=== PATIENT | male | born 1965 | race Caucasian/White ===

== ENCOUNTER 2020-05-28 12:30 | Observation (INO) | payer BC ==
[2020-05-28] MEDS ORDERED: Sodium Chloride 0.9% 10 ML Syringe FLUSH PRN ×2 (12:41→13:23)
--- NOTE | 2020-05-28 12:53 | EDM.PDOC ---
ED HPI GENERAL MEDICAL PROBLEM - General Chief Complaint: Cardiovascular Problem Stated Complaint: CHEST PAIN Time Seen by Provider: 05/28/20 12:30 Source of Information: Reports: Patient History Limitations: Reports: No Limitations - History of Present Illness INITIAL COMMENTS - FREE TEXT/NARRATIVE: 54 YO WM PRESENTS TO ER BY EMS WITH EPISODE OF CHEST PAIN WHICH BEGAN JUST PRIOR TO ARRIVAL. PT REPORTS PAIN WAS LEFT SIDED BURNING SENSATION WITH ASSOCIATED DIZZINESS AND MILD DIAPHORESIS. PT REPORTS CHEST PAIN WAS AT WORST A 2/10 AND AFTER NITRO 0.4 X 1 PT REPORTS NO CHEST DISCOMFORT AT ALL. PT REPORTS HE WOKE UP THIS AM AND FELT LIKE HIS BLOOD PRESSURE WAS ELEVATED. UPON CHECKING, IT WAS 180S/90S. CURRENT BP 132/80 AND CHEST PAIN FREE. PT TOOK HIS HOME BP MEDICATION AT THAT TIME. PT WITH HISTORY OF PVD AND HAS A STENT IN LEFT ILIAC. PT DENIES PREVIOUS EPISODES OF CHEST PAIN OR CARDIOLOGY EVALUATIONS. PT + TOBACCO- 1.5 PPD. PMH OF HYPERTENSION, HYPERCHOLESTEROLEMIA AND FAMILY HISTORY OF VASCULAR DISEASE DAD HAS HAD MULTIPLE CVA PRIOR TO HIS DEMISE. PT DENIES FEVER/CHILLS, NO NAUSEA/VOMITING, NO COUGH/CONGESTION AND NO KNOWN SICK CONTACTS OR COVID EXPOSURES. Onset: Today Location: Reports: Chest Quality: Reports: Ache Severity: Mild Improves with: Reports: None Worsens with: Reports: None Associated Symptoms: Reports: Chest Pain, Diaphoresis. 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 Social & Family History - Living Situation & Occupation Occupation: Employed ED ROS GENERAL - Review of Systems Review Of Systems: See Below Constitutional: Reports: No Symptoms HEENT: Reports: No Symptoms Respiratory: Reports: No Symptoms Cardiovascular: Reports: Chest Pain, Blood Pressure Problem, Lightheadedness Endocrine: Reports: No Symptoms GI/Abdominal: Reports: No Symptoms : Reports: No Symptoms Musculoskeletal: Reports: No Symptoms Skin: Reports: No Symptoms Neurological: Reports: No Symptoms Psychiatric: Reports: No Symptoms Hematologic/Lymphatic: Reports: No Symptoms Immunologic: Reports: No Symptoms ED EXAM, GENERAL - Physical Exam Exam: See Below Exam Limited By: No Limitations General Appearance: Alert, WD/WN, No Apparent Distress Head: Atraumatic, Normocephalic Neck: Normal Inspection, Supple, Non-Tender, Full Range of Motion Respiratory/Chest: No Respiratory Distress, Lungs Clear, Normal Breath Sounds, No Accessory Muscle Use, Chest Non-Tender Cardiovascular: Normal Peripheral Pulses, Regular Rate, Rhythm, No Edema, No Gallop, No JVD, No Murmur, No Rub GI/Abdominal: Normal Bowel Sounds, Soft, Non-Tender, No Organomegaly, No Distention, No Abnormal Bruit, No Mass Back Exam: Normal Inspection, Full Range of Motion, NT Extremities: Normal Inspection, Normal Range of Motion, Non-Tender, Normal Capillary Refill, No Pedal Edema Neurological: Alert, Oriented, CN II-XII Intact, Normal Cognition, Normal Gait, No Motor/Sensory Deficits Psychiatric: Normal Affect, Normal Mood Skin Exam: Warm, Dry, Intact, Normal Color, No Rash Lymphatic: No Adenopathy #1 Interpretation EKG Date: 05/28/20 Time: 12:42 Rhythm: NSR Rate (Beats/Min): 73 [place]: Normal P-Wave: Present QRS: Normal ST-T: Normal QT: Normal Course - Vital Signs Last Recorded V/S: Last Vital Signs Temp 97.7 F 05/28/20 12:45 Pulse 66 05/28/20 13:06 Resp 18 05/28/20 13:06 BP 123/68 05/28/20 13:06 Pulse Ox 96 05/28/20 12:45 - Orders/Labs/Meds Orders: Active Orders 24 hr Category Date Time Status EKG Documentation Completion [RC] ASDIRECTED Care 05/28/20 12:41 Ordered Peripheral IV Care [RC] . DIRECTED Care 05/28/20 12:41 Ordered INR,PT,PROTHROMBIN TIME [COAG] Stat Lab 05/28/20 12:41 Ordered PTT,PARTIAL THROMBOPLSTIN TIME [COAG] Stat Lab 05/28/20 12:41 Ordered Sodium Chloride 0.9% [Saline Flush] Med 05/28/20 12:41 Ordered 10 ml FLUSH Q8HR PRN Peripheral IV Insertion Adult [OM.PC] Routine Oth 05/28/20 12:41 Ordered EKG 12 Lead [EK] Stat Ther 05/28/20 12:41 Ordered Medication Orders Sodium Chloride (Saline Flush) 10 ml FLUSH Q8HR PRN PRN Reason: keep vein open Labs: Laboratory Tests 05/28/20 05/28/20 Range/Units 12:15 12:15 WBC 8.69 (5.00-10.00) 10^3/uL RBC 5.22 (4.50-6.00) 10^6/uL Hgb 15.8 (13.0-17.0) g/dL Hct 46.1 (40.0-52.0) % MCV 88.3 (82.0-92.0) fL MCH 30.3 (27.0-31.0) pg MCHC 34.3 (32.0-36.0) g/dL RDW 12.9 (11.5-14.5) % Plt Count 287 (150-400) 10^3/uL MPV 9.9 (7.4-10.4) fL Immature Gran % (Auto) 0.1 (0.0-5.0) % Neut % (Auto) 76.2 H (50.0-70.0) % Lymph % (Auto) 17.8 L (20.0-40.0) % [place] % (Auto) 4.7 (2.0-8.0) % Eos % (Auto) 1.0 (1.0-3.0) % Baso % (Auto) 0.2 (0.0-1.0) % Neut # (Auto) 6.61 (2.50-7.00) 10^3/uL Lymph # (Auto) 1.55 (1.00-4.00) 10^3/uL [place] # (Auto) 0.41 (0.10-0.80) 10^3/uL Eos # (Auto) 0.09 L (0.10-0.30) 10^3/uL Baso # (Auto) 0.02 (0.00-0.10) 10^3/uL Immature Gran # (Auto) 0.01 (0.00-0.50) 10^3/uL Sodium 139 (136-145) mmol/L Potassium 3.6 (3.5-5.1) mmol/L Chloride 103 (98-107) mmol/L Carbon Dioxide 23.7 (21.0-32.0) mmol/L Anion Gap 15.9 H (5-15) mmol/L BUN 12 (7-18) mg/dL Creatinine 0.75 (0.51-1.17) mg/dL Est Cr Clr Drug Dosing 118.53 mL/min Estimated GFR (MDRD) > 60 mL/min Glucose 169 H (70-140) mg/dL Calcium 9.4 (8.7-10.3) mg/dL Total Bilirubin 0.4 (0.2-1.0) mg/dL AST 27 (15-37) U/L ALT 59 (14-63) U/L Alkaline Phosphatase 117 H (46-116) U/L Creatine Kinase 63 (26-276) U/L CK-MB (CK-2) < 0.50 (0.00-3.60) ng/mL Troponin I < 0.017 (0.000-0.056) ng/mL Total Protein 7.4 (6.4-8.2) g/dL Albumin 3.75 (3.40-5.00) g/dL Meds: Medications Generic Name Dose Route Start Last Admin Trade Name Freq PRN Reason Stop Dose Admin Sodium Chloride 10 ml 05/28/20 12:41 Saline Flush FLUSH Q8HR PRN keep vein open - Radiology Interpretation Free Text/Narrative:: CXR-NAD Departure - Departure Time of Disposition: 13:22 Disposition: Refer to Observation Condition: Good Clinical Impression: Chest pain Qualifiers: Chest pain type: unspecified Qualified Code(s): R07.9 - Chest pain, unspecified Referrals: Esperanza Bliss MACHINE SHORTHAND REPORTER [Primary Care Provider] - Forms: ED Department Discharge Sepsis Event Note (ED) - Focused Exam Vital Signs: Vital Signs Temp Pulse Resp BP Pulse Ox 05/28/20 13:06 66 18 123/68 05/28/20 12:45 97.7 F 79 18 118/83 96 - My Orders Last 24 Hours: My Active Orders 05/28/20 12:41 EKG Documentation Completion [RC] ASDIRECTED Peripheral IV Care [RC] . DIRECTED INR,PT,PROTHROMBIN TIME [COAG] Stat PTT,PARTIAL THROMBOPLSTIN TIME [COAG] Stat Sodium Chloride 0.9% [Saline Flush] 10 ml FLUSH Q8HR PRN Peripheral IV Insertion Adult [OM.PC] Routine EKG 12 Lead [EK] Stat - Assessment/Plan Last 24 Hours: My Active Orders 05/28/20 12:41 EKG Documentation Completion [RC] ASDIRECTED Peripheral IV Care [RC] . DIRECTED INR,PT,PROTHROMBIN TIME [COAG] Stat PTT,PARTIAL THROMBOPLSTIN TIME [COAG] Stat Sodium Chloride 0.9% [Saline Flush] 10 ml FLUSH Q8HR PRN Peripheral IV Insertion Adult [OM.PC] Routine EKG 12 Lead [EK] Stat Assessment:: 1. CHEST PAIN 2. KNOWN PERIPHERAL VASCULAR DISEASE Plan: 1. ADMIT TO MEDICINE- [facility] ACCEPTING- OBSERVATION 2. ASA/NITRO 3. TROP I Q6 X 3 4. SUPPORTIVE CARE
--- NOTE | 2020-05-28 13:08 | CR ---
[id number] RAD/RAD Chest PA And Lateral EXAM: RAD Chest PA And Lateral CLINICAL DATA: CHEST PAIN COMPARISON: NO PREVIOUS SIMILAR EXAM IS AVAILABLE. FINDINGS: The lungs are clear. The cardiomediastinal contour is normal. The regional bones and soft tissues are unremarkable. IMPRESSION: NO ACUTE PROCESS. Rogers Martin MD 05/28/20 [id number] Thank you for allowing us to participate in the care of your patient.
[2020-05-28 13:14] LABS: ANION GAP 15.9 mmol/L (5-15); CHLORIDE,CL 103 mmol/L (98-107); SODIUM,NA 139 mmol/L (136-145)
[2020-05-28 13:19] LABS: PTT,PARTIAL THROMBOPLSTIN TIME 28.3 SEC (22.8-31.4)
--- NOTE | 2020-05-28 16:00 | PCM.HP.2 ---
H&P History of Present Illness - General Date of Service: 05/28/20 Admit Problem/Dx: Admission Diagnosis/Problem Admission Diagnosis/Problem Chest pain Source of Information: Patient, Old Records, Provider History Limitations: Reports: No Limitations 0 Pain Score (Numeric/FACES): 0 - Related Data Allergies/Adverse Reactions: Allergies Allergy/AdvReac Type Severity Reaction Status Date / Time No Known Drug Allergies Allergy Cannot Verified 05/28/20 12:52 Remember Home Medications: Home Meds Losartan Potassium [Cozaar] 100 mg PO DAILY 05/28/20 [History] atorvaSTATin [Lipitor] 40 mg PO BEDTIME 05/28/20 [History] Past Medical History HEENT History: Reports: Impaired Vision Cardiovascular History: Reports: Hypertension, PVD Musculoskeletal History: Reports: Fracture Other Musculoskeletal History: right Ankle reconstruction. Neurological History: Reports: Migraines - Infectious Disease History Infectious Disease History: Reports: Chicken Pox - Past Surgical History HEENT Surgical History: Reports: Oral Surgery Other Cardiovascular Surgeries/Procedures: stent in left upper leg due to excessive plaque Neurological Surgical History: Reports: None Social & Family History - Family History Cardiac: Reports: CAD, Hypertension Endocrine/Metabolic: Reports: Diabetes, type II Oncologic: Reports: Prostate - Tobacco Use Tobacco Use Status *Q: Current Every Day Tobacco User Years of Tobacco use: 20 Packs/Tins Daily: 1.5 - Caffeine Use Caffeine Use: Reports: Coffee, Soda Other Caffeine Use: 4 cups coffee every morning. 3-4 pops per week - Alcohol Use Days Per Week of Alcohol Use: 7 Number of Drinks Per Day: 3 Total Drinks Per Week: 21 - Recreational Drug Use Recreational Drug Use: No - Living Situation & Occupation Occupation: Employed H&P Review of Systems - Review of Systems: Review Of Systems: See Below General: Denies: Fever, Diaphoresis HEENT: Reports: Glasses. Denies: Ear Pain, Headaches, Post Nasal Drip, Sinus Congestion, Sore Throat, Vertigo Pulmonary: Denies: Shortness of Breath Cardiovascular: Reports: Palpitations (prior to arrival, none now). Denies: Chest Pain, Edema Gastrointestinal: Reports: Other (no reflux). Denies: Nausea Neurological: Denies: Dizziness, Headache Exam - Exam Exam: See Below - Vital Signs Vital Signs: Last Vital Signs Temp 97.7 F 05/28/20 12:45 Pulse 70 05/28/20 13:40 Resp 18 05/28/20 13:40 BP 119/77 05/28/20 13:40 Pulse Ox 97 05/28/20 15:30 Weight: 175 lb - Exam Quality Assessment: No: Supplemental Oxygen, DVT Prophylaxis General: Alert, Oriented, Cooperative, Other (No distress) HEENT: Conjunctiva Clear, EOMI (no nystagmus), Hearing Intact, Pupils Equal, Pupils Reactive, TMs Clear, Glasses, PERRLA Neck: Supple Lungs: Clear to Auscultation, Normal Respiratory Effort Cardiovascular: Regular Rate, Regular Rhythm, Normal S1, Normal S2 Extremities: No Pedal Edema Skin: Warm, Dry Neurological: Cranial Nerves Intact, Strength Equal Bilateral Neuro Extensive - Mental Status: Alert, Oriented x3, Normal Mood/Affect, Normal Cognition, Memory Intact Neuro Extensive - Motor, Sensory, Reflexes: CN II-XII Intact. No: Abnormal [place]berg Psychiatric: Alert, Normal Affect, Normal Mood - Patient Data Lab Results Last 24 hrs: Laboratory Results - last 24 hr 05/28/20 05/28/20 05/28/20 Range/Units 12:15 12:15 12:15 WBC 8.69 (5.00-10.00) 10^3/uL RBC 5.22 (4.50-6.00) 10^6/uL Hgb 15.8 (13.0-17.0) g/dL Hct 46.1 (40.0-52.0) % MCV 88.3 (82.0-92.0) fL MCH 30.3 (27.0-31.0) pg MCHC 34.3 (32.0-36.0) g/dL RDW 12.9 (11.5-14.5) % Plt Count 287 (150-400) 10^3/uL MPV 9.9 (7.4-10.4) fL Immature Gran % (Auto) 0.1 (0.0-5.0) % Neut % (Auto) 76.2 H (50.0-70.0) % Lymph % (Auto) 17.8 L (20.0-40.0) % [place] % (Auto) 4.7 (2.0-8.0) % Eos % (Auto) 1.0 (1.0-3.0) % Baso % (Auto) 0.2 (0.0-1.0) % Neut # (Auto) 6.61 (2.50-7.00) 10^3/uL Lymph # (Auto) 1.55 (1.00-4.00) 10^3/uL [place] # (Auto) 0.41 (0.10-0.80) 10^3/uL Eos # (Auto) 0.09 L (0.10-0.30) 10^3/uL Baso # (Auto) 0.02 (0.00-0.10) 10^3/uL Immature Gran # (Auto) 0.01 (0.00-0.50) 10^3/uL PT 10.0 (9.2-11.2) SEC INR 1.0 (0.9-1.1) APTT 28.3 (22.8-31.4) SEC Sodium 139 (136-145) mmol/L Potassium 3.6 (3.5-5.1) mmol/L Chloride 103 (98-107) mmol/L Carbon Dioxide 23.7 (21.0-32.0) mmol/L Anion Gap 15.9 H (5-15) mmol/L BUN 12 (7-18) mg/dL Creatinine 0.75 (0.51-1.17) mg/dL Est Cr Clr Drug Dosing 118.53 mL/min Estimated GFR (MDRD) > 60 mL/min Glucose 169 H (70-140) mg/dL Calcium 9.4 (8.7-10.3) mg/dL Total Bilirubin 0.4 (0.2-1.0) mg/dL AST 27 (15-37) U/L ALT 59 (14-63) U/L Alkaline Phosphatase 117 H (46-116) U/L Creatine Kinase 63 (26-276) U/L CK-MB (CK-2) < 0.50 (0.00-3.60) ng/mL Troponin I < 0.017 (0.000-0.056) ng/mL Total Protein 7.4 (6.4-8.2) g/dL Albumin 3.75 (3.40-5.00) g/dL SARS CoV-2 RNA Rapid WENDY (NEGATIVE) 05/28/20 Range/Units 13:25 WBC (5.00-10.00) 10^3/uL RBC (4.50-6.00) 10^6/uL Hgb (13.0-17.0) g/dL Hct (40.0-52.0) % MCV (82.0-92.0) fL MCH (27.0-31.0) pg MCHC (32.0-36.0) g/dL RDW (11.5-14.5) % Plt Count (150-400) 10^3/uL MPV (7.4-10.4) fL Immature Gran % (Auto) (0.0-5.0) % Neut % (Auto) (50.0-70.0) % Lymph % (Auto) (20.0-40.0) % [place] % (Auto) (2.0-8.0) % Eos % (Auto) (1.0-3.0) % Baso % (Auto) (0.0-1.0) % Neut # (Auto) (2.50-7.00) 10^3/uL Lymph # (Auto) (1.00-4.00) 10^3/uL [place] # (Auto) (0.10-0.80) 10^3/uL Eos # (Auto) (0.10-0.30) 10^3/uL Baso # (Auto) (0.00-0.10) 10^3/uL Immature Gran # (Auto) (0.00-0.50) 10^3/uL PT (9.2-11.2) SEC INR (0.9-1.1) APTT (22.8-31.4) SEC Sodium (136-145) mmol/L Potassium (3.5-5.1) mmol/L Chloride (98-107) mmol/L Carbon Dioxide (21.0-32.0) mmol/L Anion Gap (5-15) mmol/L BUN (7-18) mg/dL Creatinine (0.51-1.17) mg/dL Est Cr Clr Drug Dosing mL/min Estimated GFR (MDRD) mL/min Glucose (70-140) mg/dL Calcium (8.7-10.3) mg/dL Total Bilirubin (0.2-1.0) mg/dL AST (15-37) U/L ALT (14-63) U/L Alkaline Phosphatase (46-116) U/L Creatine Kinase (26-276) U/L CK-MB (CK-2) (0.00-3.60) ng/mL Troponin I (0.000-0.056) ng/mL Total Protein (6.4-8.2) g/dL Albumin (3.40-5.00) g/dL SARS CoV-2 RNA Rapid WENDY Negative (NEGATIVE) Result Diagrams: 05/28/20 12:15 05/28/20 12:15 #1 Interpretation EKG Date: 05/28/20 Time: 12:42 Rhythm: NSR Rate (Beats/Min): 73 [place]: Normal P-Wave: Present QRS: Normal ST-T: Normal QT: Normal Comparison: No Change (09/2018) Sepsis Event Note - Evaluation Sepsis Screening Result: No Definite Risk - Focused Exam Vital Signs: Vital Signs Temp Pulse Resp BP Pulse Ox Pulse Ox 05/28/20 15:30 97 05/28/20 13:40 70 18 119/77 96 05/28/20 13:20 68 18 117/73 96 05/28/20 13:06 66 18 123/68 05/28/20 12:45 97.7 F 79 18 118/83 96 Problem List Initiated/Reviewed/Updated: Yes Orders Last 24hrs: Active Orders 24 hr Category Date Time Status Patient Status [ADT] Routine ADT 05/28/20 13:23 Active Intake and Output [RC] QSHIFT Care 05/28/20 15:30 Active Oxygen Therapy [RC] PRN Care 05/28/20 15:30 Active Telemetry Monitoring [Cardiac Monitoring] [RC] . Care 05/28/20 15:30 Active DIRECTED Up ad [place] [RC] ASDIRECTED Care 05/28/20 15:30 Active VTE/DVT Education [RC] PER UNIT ROUTINE Care 05/28/20 15:30 Active Vital Signs [RC] Q4H Care 05/28/20 15:30 Active Heart Healthy Diet [DIET] Diet 05/28/20 Dinner Active BASIC METABOLIC PANEL,BMP [CHEM] AM Lab 05/29/20 05:11 Ordered CBC WITH AUTO DIFF [HEME] AM Lab 05/29/20 05:11 Ordered TROPONIN I [CHEM] Q6H Lab 05/28/20 18:00 Ordered TROPONIN I [CHEM] Q6H Lab 05/29/20 00:00 Ordered Aspirin [Halfprin] Med 05/29/20 08:00 Ordered 81 mg PO WITHBREAKFAST Losartan Potassium [Cozaar] Med 05/29/20 09:00 Ordered 100 mg PO DAILY Sodium Chloride 0.9% [Saline Flush] Med 05/28/20 13:23 Active 10 ml FLUSH Q8HR PRN atorvaSTATin [Lipitor] Med 05/28/20 21:00 Once 40 mg PO ONETIME ONE Saline Lock Insert [OM.PC] Routine Oth 05/28/20 13:23 Ordered Resuscitation Status Routine Resus Stat 05/28/20 13:23 Ordered EKG 12 Lead [EK] Stat Ther 05/28/20 12:41 Stop Req Medication Orders Aspirin (Halfprin) 81 mg PO WITHBREAKFAST MINOR Atorvastatin Calcium (Lipitor) 40 mg PO ONETIME ONE Stop: 05/28/20 21:01 Losartan Potassium (Cozaar) 100 mg PO DAILY MINOR Sodium Chloride (Saline Flush) 10 ml FLUSH Q8HR PRN PRN Reason: keep vein open Assessment/Plan Comment:: HPI summary: This is a 54 yoM who presented to the ED via ambulance with concerns of chest pain. He noted some mild right ear discomfort and left arm discomfort yesterday (05/27/20) so he rested inside. This morning he woke up feeling quite well and then became dizzy and diaphoretic. He checked his blood pressure and it was 180s systolic. He took his losartan and lipitor at that time. He started having some left chest and arm discomfort so called EMS. He was given aspirin 324 mg and nitro 0.4 mg SL by EMS with complete resolution of pain. ED course: -EKG-NSR, no ST segment changes -Troponin <0.017 -WBC 8.7 with neutrophils of 76.2% -Alk phos 117 -Ct 0.76 -CXR- no acute processes -COVID negative Hospital course: 05/28/20: He was admitted to observation status with telemetry for further monitoring. Hospitalization problems and plan: # Chest pain # Rule out CA # Elevated alk phos - VS q4h with telemetry - Troponin q6h x a total of 3 - CBC & CMP in AM Chronic, stable conditions: # PAD. Continue aspirin 81 mg po daily. # HTN. Continue losartan 100 mg po daily. # Allergic rhinitis d/t allergen. # Prediabetes. A1c 5.4 (05/10/20). # HLD. LDL 94 (05/10/20). Increase lipitor to 80 mg po daily. # Tobacco use disorder. 1.5 ppd. Offered nicotine patch, however patient declined at this time. # Cluster headaches. # Insomnia. # Constipation. # Chronic fatigue. # Elevated LFTs. # Family history of prostate CA. Hospitalization details: # FEN: Saline lock. Electrolytes wnl. Heart healthy diet. # PPX: None. # Code status: Full Code # Emergency contact: Ren Nelson, brother. # Disposition: Placed in observation status with telemetry. Will trend troponins. Likely discharge in AM. Plan for outpatient stress test. - Mortality Measure Prognosis:: Good
[2020-05-28] MEDS ORDERED: Nitroglycerin 0.4 MG Tab.SL SL PRN (19:35)
[2020-05-28] MEDS ORDERED: Atropine 0.1 MG/ML 10 ML Syringe IVPUSH PRN (19:35)
[2020-05-28] MEDS ORDERED: EPINEPHrine 1:10,000 1 MG/10 ML Syringe IVPUSH PRN (19:35)
[2020-05-28] MEDS ORDERED: Lidocaine 2% 100 MG/5 ML Syringe IVPUSH PRN (19:35)
[2020-05-28] MEDS ORDERED: atorvaSTATin 40 MG Tab PO ONE (21:00)
[2020-05-29 06:36] VITALS: BP 139/91; PULSE 59
[2020-05-29] MEDS ORDERED: Aspirin 81 MG Tab.EC PO SCH (08:00)
[2020-05-29 08:34] LABS: ANION GAP 11.2 mmol/L (5-15); CHLORIDE,CL 106 mmol/L (98-107); SODIUM,NA 140 mmol/L (136-145)
--- NOTE | 2020-05-29 08:53 | PCM.DCSUM1 ---
Discharge Summary - Hospital Course Free Text/Narrative:: Date of admission: 05/28/20 Date of discharge: 05/29/20 Admission diagnoses: # Chest pain # Rule out IA # Elevated alk phos Discharge diagnoses: # Chest pain, atypical, resolved. # Rule out IA, this has been ruled out. # Elevated alk phos, resolved. Secondary diagnoses: # PAD. # HTN. # Allergic rhinitis d/t allergen. # Prediabetes. # HLD. # Tobacco use disorder. # Cluster headaches. # Insomnia. # Constipation. # Chronic fatigue. # Elevated LFTs. # Family history of prostate CA. Consultations: None Procedures: None HPI summary: This is a 54 yoM who presented to the ED via ambulance with concerns of chest pain. He noted some mild right ear discomfort and left arm discomfort yesterday (05/27/20) so he rested inside. This morning he woke up feeling quite well and then became dizzy and diaphoretic. He checked his blood pressure and it was 180s systolic. He took his losartan and lipitor at that time. He started having some left chest and arm discomfort so called EMS. He was given aspirin 324 mg po and nitro 0.4 mg SL by EMS with complete resolution of pain. ED course: -EKG-NSR, no ST segment changes -Troponin <0.017 -WBC 8.7 with neutrophils of 76.2% -Alk phos 117 -Ct 0.76 -CXR- no acute processes -COVID negative Hospital course: 05/28/20: He was admitted to observation status with telemetry for further monitoring. 05/29/20: No calls overnight. Patient notes some slight left anterior chest tingling this morning, however questions if it is related to his coffee as he hadn't had any since yesterday. No other concerns. VS T 97.1F HR 59 BP 139/91 RR 15 O2 sat 95% on room air. WBC 10.2 w/o neutrophilia, Hgb 14.9, Alk phos 102, AST 26, ALT 54, electrolytes wnl, Ct 0.72. Troponins x 3 were all <0.017. No abnormalities noted on telemetry. Discharge and follow-up recommendations: - Discharge to home, self care. - Medication changes at discharge: - Increase lipitor to 80 mg po daily - Restart aspirin 81 mg po daily - Nitroglycerin 0.4 mg SL prn - Toprol XL 25 mg po daily - Follow-up with myself on 05/31/20 at the [facility]. Plan to initiate outpatient stress test. Order placed in [facility] system today. - Pending results: None - Discharge Data Discharge Date: 05/29/20 Discharge Disposition: Home, Self-Care 01 Condition: Good - Referral to Home Health Primary Care Physician: Baylee Bliss NP - Patient Instructions Diet: Heart Healthy Diet, Low Sodium Activity: As Tolerated, No Strenuous Activities, Rest and Relax Today Driving: May Drive Today Showering/Bathing: May Shower Notify Provider of: Increased Pain (chest or left arm pain/tingling, shortness of breath, dizziness, sweating) - Discharge Plan *PRESCRIPTION DRUG MONITORING PROGRAM REVIEWED*: Not Applicable *COPY OF PRESCRIPTION DRUG MONITORING REPORT IN PATIENT [place]: Not Applicable Prescriptions/Med Rec: Nitroglycerin [Nitrostat] 0.4 mg SL ASDIRECTED PRN #30 tab.sl PRN Reason: Chest Pain Metoprolol Succinate [Toprol XL] 25 mg PO DAILY #30 tab.er Tobacco Cessation Medication: Prescription Refused Home Medications: Home Meds Losartan Potassium [Cozaar] 100 mg PO DAILY 05/28/20 [History] Aspirin [Halfprin] 81 mg PO WITHBREAKFAST #0 tab.ec 05/29/20 [Rx] Metoprolol Succinate [Toprol XL] 25 mg PO DAILY #30 tab.er 05/29/20 [Rx] Nitroglycerin [Nitrostat] 0.4 mg SL ASDIRECTED PRN #30 tab.sl 05/29/20 [Rx] atorvaSTATin [Lipitor] 80 mg PO BEDTIME #0 05/29/20 [Rx] Oxygen Therapy Mode: Room Air Forms: ED Department Discharge Referrals: Baylee Bliss NP [Primary Care Provider] - 05/31/20 - Discharge Summary/Plan Comment DC Time >30 min.: No - General Info Date of Service: 05/29/20 Functional Status: Reports: Pain Controlled, Tolerating Diet, Ambulating, Urinating. Denies: New Symptoms - Review of Systems General: Denies: Fever, Fatigue, Malaise HEENT: Reports: Glasses. Denies: Headaches Pulmonary: Denies: Shortness of Breath, Cough Cardiovascular: Denies: Chest Pain, Palpitations, Edema, Lightheadedness Gastrointestinal: Reports: Other (no reflux). Denies: Nausea Neurological: Reports: Tingling (slight of anterior left chest). Denies: Dizziness, Headache Psychiatric: Reports: No Symptoms - Patient Data Vitals - Most Recent: Last Vital Signs Temp 97.1 F 05/29/20 06:35 Pulse 59 L 05/29/20 06:35 Resp 16 05/29/20 06:35 BP 139/91 H 05/29/20 08:03 Pulse Ox 95 05/29/20 06:35 Weight - Most Recent: 175 lb I&O - Last 24 hours: Intake & Output 05/28/20 05/29/20 05/29/20 22:59 06:59 14:59 Intake Total 400 100 Balance 400 100 Lab Results - Last 24 hrs: Laboratory Results - last 24 hr 05/28/20 05/28/20 05/28/20 Range/Units 12:15 12:15 12:15 WBC 8.69 (5.00-10.00) 10^3/uL RBC 5.22 (4.50-6.00) 10^6/uL Hgb 15.8 (13.0-17.0) g/dL Hct 46.1 (40.0-52.0) % MCV 88.3 (82.0-92.0) fL MCH 30.3 (27.0-31.0) pg MCHC 34.3 (32.0-36.0) g/dL RDW 12.9 (11.5-14.5) % Plt Count 287 (150-400) 10^3/uL MPV 9.9 (7.4-10.4) fL Immature Gran % (Auto) 0.1 (0.0-5.0) % Neut % (Auto) 76.2 H (50.0-70.0) % Lymph % (Auto) 17.8 L (20.0-40.0) % [place] % (Auto) 4.7 (2.0-8.0) % Eos % (Auto) 1.0 (1.0-3.0) % Baso % (Auto) 0.2 (0.0-1.0) % Neut # (Auto) 6.61 (2.50-7.00) 10^3/uL Lymph # (Auto) 1.55 (1.00-4.00) 10^3/uL [place] # (Auto) 0.41 (0.10-0.80) 10^3/uL Eos # (Auto) 0.09 L (0.10-0.30) 10^3/uL Baso # (Auto) 0.02 (0.00-0.10) 10^3/uL Immature Gran # (Auto) 0.01 (0.00-0.50) 10^3/uL PT 10.0 (9.2-11.2) SEC INR 1.0 (0.9-1.1) APTT 28.3 (22.8-31.4) SEC Sodium 139 (136-145) mmol/L Potassium 3.6 (3.5-5.1) mmol/L Chloride 103 (98-107) mmol/L Carbon Dioxide 23.7 (21.0-32.0) mmol/L Anion Gap 15.9 H (5-15) mmol/L BUN 12 (7-18) mg/dL Creatinine 0.75 (0.51-1.17) mg/dL Est Cr Clr Drug Dosing 118.53 mL/min Estimated GFR (MDRD) > 60 mL/min Glucose 169 H (70-140) mg/dL Calcium 9.4 (8.7-10.3) mg/dL Total Bilirubin 0.4 (0.2-1.0) mg/dL AST 27 (15-37) U/L ALT 59 (14-63) U/L Alkaline Phosphatase 117 H (46-116) U/L Creatine Kinase 63 (26-276) U/L CK-MB (CK-2) < 0.50 (0.00-3.60) ng/mL Troponin I < 0.017 (0.000-0.056) ng/mL Total Protein 7.4 (6.4-8.2) g/dL Albumin 3.75 (3.40-5.00) g/dL SARS CoV-2 RNA Rapid WENDY (NEGATIVE) 05/28/20 05/28/20 05/29/20 Range/Units 13:25 17:55 00:30 WBC (5.00-10.00) 10^3/uL RBC (4.50-6.00) 10^6/uL Hgb (13.0-17.0) g/dL Hct (40.0-52.0) % MCV (82.0-92.0) fL MCH (27.0-31.0) pg MCHC (32.0-36.0) g/dL RDW (11.5-14.5) % Plt Count (150-400) 10^3/uL MPV (7.4-10.4) fL Immature Gran % (Auto) (0.0-5.0) % Neut % (Auto) (50.0-70.0) % Lymph % (Auto) (20.0-40.0) % [place] % (Auto) (2.0-8.0) % Eos % (Auto) (1.0-3.0) % Baso % (Auto) (0.0-1.0) % Neut # (Auto) (2.50-7.00) 10^3/uL Lymph # (Auto) (1.00-4.00) 10^3/uL [place] # (Auto) (0.10-0.80) 10^3/uL Eos # (Auto) (0.10-0.30) 10^3/uL Baso # (Auto) (0.00-0.10) 10^3/uL Immature Gran # (Auto) (0.00-0.50) 10^3/uL PT (9.2-11.2) SEC INR (0.9-1.1) APTT (22.8-31.4) SEC Sodium (136-145) mmol/L Potassium (3.5-5.1) mmol/L Chloride (98-107) mmol/L Carbon Dioxide (21.0-32.0) mmol/L Anion Gap (5-15) mmol/L BUN (7-18) mg/dL Creatinine (0.51-1.17) mg/dL Est Cr Clr Drug Dosing mL/min Estimated GFR (MDRD) mL/min Glucose (70-140) mg/dL Calcium (8.7-10.3) mg/dL Total Bilirubin (0.2-1.0) mg/dL AST (15-37) U/L ALT (14-63) U/L Alkaline Phosphatase (46-116) U/L Creatine Kinase (26-276) U/L CK-MB (CK-2) (0.00-3.60) ng/mL Troponin I < 0.017 < 0.017 (0.000-0.056) ng/mL Total Protein (6.4-8.2) g/dL Albumin (3.40-5.00) g/dL SARS CoV-2 RNA Rapid WENDY Negative (NEGATIVE) 05/29/20 05/29/20 Range/Units 07:10 07:10 WBC 10.19 H (5.00-10.00) 10^3/uL RBC 5.02 (4.50-6.00) 10^6/uL Hgb 14.9 (13.0-17.0) g/dL Hct 44.2 (40.0-52.0) % MCV 88.0 (82.0-92.0) fL MCH 29.7 (27.0-31.0) pg MCHC 33.7 (32.0-36.0) g/dL RDW 13.0 (11.5-14.5) % Plt Count 270 (150-400) 10^3/uL MPV 9.8 (7.4-10.4) fL Immature Gran % (Auto) 0.1 (0.0-5.0) % Neut % (Auto) 66.1 (50.0-70.0) % Lymph % (Auto) 23.7 (20.0-40.0) % [place] % (Auto) 6.7 (2.0-8.0) % Eos % (Auto) 3.1 H (1.0-3.0) % Baso % (Auto) 0.3 (0.0-1.0) % Neut # (Auto) 6.73 (2.50-7.00) 10^3/uL Lymph # (Auto) 2.42 (1.00-4.00) 10^3/uL [place] # (Auto) 0.68 (0.10-0.80) 10^3/uL Eos # (Auto) 0.32 H (0.10-0.30) 10^3/uL Baso # (Auto) 0.03 (0.00-0.10) 10^3/uL Immature Gran # (Auto) 0.01 (0.00-0.50) 10^3/uL PT (9.2-11.2) SEC INR (0.9-1.1) APTT (22.8-31.4) SEC Sodium 140 (136-145) mmol/L Potassium 3.9 (3.5-5.1) mmol/L Chloride 106 (98-107) mmol/L Carbon Dioxide 26.7 (21.0-32.0) mmol/L Anion Gap 11.2 (5-15) mmol/L BUN 8 (7-18) mg/dL Creatinine 0.72 (0.51-1.17) mg/dL Est Cr Clr Drug Dosing 123.47 mL/min Estimated GFR (MDRD) > 60 mL/min Glucose 98 (70-140) mg/dL Calcium 9.1 (8.7-10.3) mg/dL Total Bilirubin 0.4 (0.2-1.0) mg/dL AST 26 (15-37) U/L ALT 54 (14-63) U/L Alkaline Phosphatase 102 (46-116) U/L Creatine Kinase (26-276) U/L CK-MB (CK-2) (0.00-3.60) ng/mL Troponin I (0.000-0.056) ng/mL Total Protein 6.6 (6.4-8.2) g/dL Albumin 3.38 L (3.40-5.00) g/dL SARS CoV-2 RNA Rapid WENDY (NEGATIVE) Med Orders - Current: Current Medications Aspirin (Halfprin) 81 mg PO WITHBREAKFAST REPLACED BY [facility] Last Admin: 05/29/20 08:04 Dose: 81 mg Documented by: Atropine Sulfate (Atropine 0.1 Mg/Ml) 0 mg IVPUSH ASDIRECTED PRN PRN Reason: Heart. Epinephrine HCl (Epinephrine 1:10,000) 1 mg IVPUSH ASDIRECTED PRN PRN Reason: Heart. Lidocaine HCl (Xylocaine 2%) 0 mg IVPUSH ASDIRECTED PRN PRN Reason: Heart. Losartan Potassium (Cozaar) 100 mg PO DAILY REPLACED BY [facility] Last Admin: 05/29/20 08:03 Dose: 100 mg Documented by: Nitroglycerin (Nitrostat) 0.4 mg SL ASDIRECTED PRN PRN Reason: Heart. Sodium Chloride (Saline Flush) 10 ml FLUSH Q8HR PRN PRN Reason: keep vein open Discontinued Medications Atorvastatin Calcium (Lipitor) 40 mg PO ONETIME ONE Stop: 05/28/20 21:01 Last Admin: 05/28/20 21:13 Dose: 40 mg Documented by: Sodium Chloride (Saline Flush) 10 ml FLUSH Q8HR PRN PRN Reason: keep vein open - Exam Quality Assessment: Denies: Supplemental Oxygen, DVT Prophylaxis General: Reports: Alert, Oriented, Cooperative, No Acute Distress Lungs: Reports: Clear to Auscultation, Normal Respiratory Effort Cardiovascular: Reports: Regular Rate, Regular Rhythm, No Murmurs Extremities: No Pedal Edema Skin: Reports: Warm, Dry Neurological: Reports: Normal Speech Psy/Mental Status: Reports: Alert, Normal Affect, Normal Mood
[2020-05-29] MEDS ORDERED: Losartan 50 MG Tab PO SCH (09:00)
== END 2020-05-29 10:18 | disposition home or self-care (01) ==
LOC: KA.ED 12:30 → KA.MS 13:23 → KA.ED 13:45
PROVIDERS: ADMIT Physician Assistant Medical; ATTEND Nurse Practitioner Family
DX: R07.89 Other chest pain (principal); R74.8 Abnormal levels of other serum enzymes; I73.9 Peripheral vascular disease, unspecified; R79.89 Other specified abnormal findings of blood chemistry; E78.5 Hyperlipidemia, unspecified; I10 Essential (primary) hypertension; R73.03 Prediabetes; F17.210 Nicotine dependence, cigarettes, uncomplicated; J30.9 Allergic rhinitis, unspecified; R51.9 Headache, unspecified; G47.00 Insomnia, unspecified; Z20.822 Contact with and (suspected) exposure to COVID-19; K59.00 Constipation, unspecified; Z85.46 Personal history of malignant neoplasm of prostate; Z79.899 Other long term (current) drug therapy; Z79.82 Long term (current) use of aspirin; Z82.49 Family history of ischemic heart disease and other diseases of the circulatory system
CPT/HCPCS: 36415; 71046; 80053; 82550; 82553; 84484; 85025; 85610; 85730; 93005; 99284; 99285-25; A9270-GY; G0378; U0002

== ENCOUNTER 2020-06-17 10:46 | Emergency (ER) | payer BC ==
--- NOTE | 2020-06-17 11:54 | CR ---
[id number] RAD/RAD Chest PA or AP 1V EXAM: FRONTAL CHEST INDICATION: STENT PLACEMENT ON FRIDAY. LEFT ARM NUMBNESS. COMPARISON: May 28, 2020. DISCUSSION: The heart and lungs are normal in appearance. IMPRESSION: 1. Negative exam. Marquise Shannon MD 06/17/20 [id number] Thank you for allowing us to participate in the care of your patient.
--- NOTE | 2020-06-17 12:06 | EDM.PDOC ---
ED HPI GENERAL MEDICAL PROBLEM - General Chief Complaint: Chest Pain Stated Complaint: CHEST DISCOMFORT Time Seen by Provider: 06/17/20 11:00 Source of Information: Reports: Patient History Limitations: Reports: No Limitations - History of Present Illness INITIAL COMMENTS - FREE TEXT/NARRATIVE: 54 yo dense in the emergency room with complaints of left arm numbness this morning and now tingling. Patient is status post coronary stent placement this past Friday in [place]. He was discharged home Friday. He has not had any significant concerns. He reports he is always had some mild chest discomfort since his stent was placed on Friday. This has not changed. Is not increased in its intensity. When he woke up this morning he noticed that his left arm was numb and now reports tingling. He felt sweaty. He thought he should be seen in the emergency room and further evaluated. He feels it has improved some. He is not nauseous. He denies any abdominal pain. Does not have any chest pain radiation to his shoulder or down his arm. He denies any neck pain or jaw pain. He has no low back pain. Currently diaphoretic. His EKG showed a normal sinus rhythm. Chest x-ray was unremarkable. Lab work was ordered and troponin was normal. Onset: Today Onset Date: 06/17/20 Onset Time: 09:30 Duration: Improving Location: Reports: Chest (dull ache since stent), Upper Extremity, Left Quality: Reports: Ache Severity: Mild Improves with: Reports: None Worsens with: Reports: None Associated Symptoms: Reports: Chest Pain, Diaphoresis. Denies: Nausea/Vomiting, Shortness of Breath - Related Data Allergies Allergy/AdvReac Type Severity Reaction Status Date / Time No Known Drug Allergies Allergy Cannot Verified 06/17/20 11:36 Remember Home Meds: Home Meds Losartan Potassium [Cozaar] 100 mg PO DAILY 05/28/20 [History] Aspirin [Halfprin] 81 mg PO WITHBREAKFAST #0 tab.ec 05/29/20 [Rx] Metoprolol Succinate [Toprol XL] 25 mg PO DAILY #30 tab.er 05/29/20 [Rx] Nitroglycerin [Nitrostat] 0.4 mg SL ASDIRECTED PRN #30 tab.sl 05/29/20 [Rx] Nicotine Polacrilex [Nicotine Gum] 2 mg BC ASDIRECTED PRN 06/17/20 [History] Psyllium [Metamucil] 1 gm PO DAILY 06/17/20 [History] SUMAtriptan [Imitrex] 50 mg PO ASDIRECTED PRN 06/17/20 [History] Ticagrelor [Brilinta] 90 mg PO BID 06/17/20 [History] Triamcinolone Acetonide [Nasacort] 2 sprays NS ASDIRECTED PRN 06/17/20 [History] amLODIPine [Norvasc] 5 mg PO DAILY 06/17/20 [History] atorvaSTATin [Lipitor] 80 mg PO BEDTIME 06/17/20 [History] Past Medical History HEENT History: Reports: Impaired Vision Cardiovascular History: Reports: Hypertension, PVD Musculoskeletal History: Reports: Fracture Other Musculoskeletal History: right Ankle reconstruction. Neurological History: Reports: Migraines - Infectious Disease History Infectious Disease History: Reports: Chicken Pox - Past Surgical History HEENT Surgical History: Reports: Oral Surgery Other Cardiovascular Surgeries/Procedures: stent in left upper leg due to excessive plaque Neurological Surgical History: Reports: None Social & Family History - Family History Family Medical History: No Pertinent Family History Cardiac: Reports: CAD, Hypertension Endocrine/Metabolic: Reports: Diabetes, type II Oncologic: Reports: Prostate - Tobacco Use Tobacco Use Status *Q: Current Every Day Tobacco User Years of Tobacco use: 30 Packs/Tins Daily: 1 - Caffeine Use Caffeine Use: Reports: Coffee Other Caffeine Use: 4 cups coffee every morning. 3-4 pops per week - Alcohol Use Days Per Week of Alcohol Use: 7 Number of Drinks Per Day: 3 Total Drinks Per Week: 21 Date of Last Drink: 06/16/20 Time of Last Drink: 18:30 - Recreational Drug Use Recreational Drug Use: No - Living Situation & Occupation Occupation: Employed ED ROS GENERAL - Review of Systems Review Of Systems: See Below Constitutional: Reports: Diaphoresis HEENT: Reports: No Symptoms Respiratory: Denies: Shortness of Breath Cardiovascular: Reports: Chest Pain, Blood Pressure Problem. Denies: Dyspnea on Exertion, Lightheadedness, Orthopnea, Palpitations, PND, Syncope Endocrine: Reports: No Symptoms GI/Abdominal: Reports: No Symptoms : Reports: No Symptoms Musculoskeletal: Reports: No Symptoms Skin: Reports: No Symptoms Neurological: Reports: Numbness (left arm), Tingling (left arm) ED EXAM, GENERAL - Physical Exam Exam: See Below Exam Limited By: No Limitations General Appearance: Alert, WD/WN, No Apparent Distress Eye Exam: Bilateral Eye: EOMI Ears: Hearing Grossly Normal Nose: Normal Inspection, Normal Mucosa, No Blood Throat/Mouth: Normal Inspection, Normal Lips, Normal Oropharynx, Normal Voice, No Airway Compromise Head: Atraumatic, Normocephalic Neck: Normal Inspection, Supple, Non-Tender, Full Range of Motion Respiratory/Chest: No Respiratory Distress, Lungs Clear, Normal Breath Sounds, Chest Non-Tender, Decreased Breath Sounds Cardiovascular: Normal Peripheral Pulses, Regular Rate, Rhythm, No Murmur Peripheral Pulses: 1+: Dorsalis Pedis (L), Dorsalis Pedis (R), 2+: Carotid (L), Carotid (R), Radial (L), Radial (R) GI/Abdominal: Soft, Non-Tender Back Exam: Normal Inspection Extremities: Normal Inspection, Normal Range of Motion Neurological: Alert, Oriented, CN II-XII Intact, No Motor/Sensory Deficits Psychiatric: Normal Affect, Normal Mood Skin Exam: Warm, Dry, Intact, Normal Color, No Rash. No: Diaphoretic Lymphatic: No Adenopathy #1 Interpretation EKG Date: 06/17/20 Time: 10:55 Rhythm: NSR Rate (Beats/Min): 65 [place]: Normal P-Wave: Present QRS: Normal ST-T: Normal QT: Normal Comparison: NA - No Prior EKG EKG Interpretation Comments: Normal sinus rhythm Normal ECG Course - Vital Signs Last Recorded V/S: Last Vital Signs Temp 97.2 F 06/17/20 12:31 Pulse 63 06/17/20 12:31 Resp 16 06/17/20 12:31 BP 134/87 06/17/20 12:31 Pulse Ox 98 06/17/20 12:31 - Orders/Labs/Meds Orders: Active Orders 24 hr Category Date Time Status EKG Documentation Completion [RC] ASDIRECTED Care 06/17/20 11:28 Active B-TYPE NATRIURETIC PEPTIDE,BNP [CHEM] Stat Lab 06/17/20 11:40 Results BASIC METABOLIC PANEL,BMP [CHEM] Stat Lab 06/17/20 11:40 Results CK W CKMB [CHEM] Stat Lab 06/17/20 11:40 Results TROPONIN I [CHEM] Stat Lab 06/17/20 11:40 Results EKG 12 Lead [EK] Stat Ther 06/17/20 11:27 Ordered Labs: Laboratory Tests 06/17/20 06/17/20 06/17/20 Range/Units 11:40 11:40 11:40 WBC 8.28 (5.00-10.00) 10^3/uL RBC 5.06 (4.50-6.00) 10^6/uL Hgb 15.2 (13.0-17.0) g/dL Hct 44.6 (40.0-52.0) % MCV 88.1 (82.0-92.0) fL MCH 30.0 (27.0-31.0) pg MCHC 34.1 (32.0-36.0) g/dL RDW 12.9 (11.5-14.5) % Plt Count 273 (150-400) 10^3/uL MPV 9.8 (7.4-10.4) fL Immature Gran % (Auto) 0.1 (0.0-5.0) % Neut % (Auto) 69.1 (50.0-70.0) % Lymph % (Auto) 18.2 L (20.0-40.0) % [place] % (Auto) 8.8 H (2.0-8.0) % Eos % (Auto) 3.4 H (1.0-3.0) % Baso % (Auto) 0.4 (0.0-1.0) % Neut # (Auto) 5.72 (2.50-7.00) 10^3/uL Lymph # (Auto) 1.51 (1.00-4.00) 10^3/uL [place] # (Auto) 0.73 (0.10-0.80) 10^3/uL Eos # (Auto) 0.28 (0.10-0.30) 10^3/uL Baso # (Auto) 0.03 (0.00-0.10) 10^3/uL Immature Gran # (Auto) 0.01 (0.00-0.50) 10^3/uL APTT 28.5 (22.8-31.4) SEC Sodium 138 (136-145) mmol/L Potassium 4.2 (3.5-5.1) mmol/L Chloride 103 (98-107) mmol/L Carbon Dioxide 24.0 (21.0-32.0) mmol/L Anion Gap 15.2 H (5-15) mmol/L BUN 13 (7-18) mg/dL Creatinine 0.67 (0.51-1.17) mg/dL Est Cr Clr Drug Dosing 132.68 mL/min Estimated GFR (MDRD) > 60 mL/min Glucose 100 (70-140) mg/dL Calcium 9.5 (8.7-10.3) mg/dL CK-MB (CK-2) 0.62 (0.00-3.60) ng/mL Troponin I 0.038 (0.000-0.056) ng/mL B-Natriuretic Peptide < 5 (0-100) pg/mL - Radiology Interpretation Free Text/Narrative:: Chest x-ray Discussion: The heart and lungs are normal in appearance. Impression: Negative exam - Re-Assessments/Exams Free Text/Narrative Re-Assessment/Exam: 06/17/20 12:12 Arm numbness and tingling is resolved, is no current complaints or discomfort. Departure - Departure Time of Disposition: 12:49 Disposition: Home, Self-Care 01 Condition: Good Clinical Impression: Status post angioplasty with stent, Numbness and tingling in left arm Instructions: Coronary Angiogram With Stent, Care After, Nonspecific Chest Pain, Adult Referrals: Baylee Bliss NP [Primary Care Provider] - Forms: ED Department Discharge Additional Instructions: 1. EKG showed normal and lab work was all normal readings including troponin. 2. You should rest over the weekend and avoid any exertion. 3. Continue to take your medications as prescribed by your family practice and soda tester. 4. Recommend follow-up with your primary care next week and notify your soda tester of your recent symptoms and ER visit. 5. If you have return of any significant chest pain lasting more than 2 minutes or arm pain that is not relieved with your medication or rest you should return promptly to the emergency room. Sepsis Event Note (ED) - Evaluation Sepsis Screening Result: No Definite Risk - Focused Exam Vital Signs: Vital Signs Temp Pulse Resp BP Pulse Ox 06/17/20 12:31 97.2 F 63 16 134/87 98 06/17/20 12:15 97.5 F 62 16 129/79 98 06/17/20 12:09 65 18 136/82 98 06/17/20 11:30 66 14 142/83 H 98 06/17/20 11:00 71 11 L 135/74 97 06/17/20 10:46 97.3 F 82 14 150/82 H 98 - My Orders Last 24 Hours: My Active Orders 06/17/20 11:27 EKG 12 Lead [EK] Stat 06/17/20 11:28 EKG Documentation Completion [RC] ASDIRECTED 06/17/20 11:40 B-TYPE NATRIURETIC PEPTIDE,BNP [CHEM] Stat BASIC METABOLIC PANEL,BMP [CHEM] Stat CK W CKMB [CHEM] Stat TROPONIN I [CHEM] Stat - Assessment/Plan Last 24 Hours: My Active Orders 06/17/20 11:27 EKG 12 Lead [EK] Stat 06/17/20 11:28 EKG Documentation Completion [RC] ASDIRECTED 06/17/20 11:40 B-TYPE NATRIURETIC PEPTIDE,BNP [CHEM] Stat BASIC METABOLIC PANEL,BMP [CHEM] Stat CK W CKMB [CHEM] Stat TROPONIN I [CHEM] Stat Assessment:: Status post coronary angiogram with stent placement Left arm numbness and tingling resolved Plan: 1. EKG showed normal and lab work was all normal readings including troponin. 2. You should rest over the weekend and avoid any exertion. 3. Continue to take your medications as prescribed by your family practice and soda tester. 4. Recommend follow-up with your primary care next week and notify your soda tester of your recent symptoms and ER visit. 5. If you have return of any significant chest pain lasting more than 2 minutes or arm pain that is not relieved with your medication or rest you should return promptly to the emergency room.
[2020-06-17 12:10] LABS: ANION GAP 15.2 mmol/L (5-15); CHLORIDE,CL 103 mmol/L (98-107); SODIUM,NA 138 mmol/L (136-145)
[2020-06-17 12:32] VITALS: BP 134/87; PULSE 63
== END 2020-06-17 12:50 | disposition home or self-care (01) ==
LOC: KA.ED 10:46
DX: R20.0 Anesthesia of skin (principal); R20.2 Paresthesia of skin; R61 Generalized hyperhidrosis; R07.89 Other chest pain; I10 Essential (primary) hypertension; Z95.5 Presence of coronary angioplasty implant and graft; Z72.0 Tobacco use; Z79.899 Other long term (current) drug therapy
CPT/HCPCS: 71045; 80048; 82550; 82553; 83880; 84484; 85025; 85730; 93005; 99284; 99285-25